=== PATIENT | female | born 1965 | race Caucasian/White ===

== ENCOUNTER → 2019-11-23 09:25 | Outpatient (BNVA) | payer BC, SELFPAY | PROVIDERS: Family Provider Family Medicine; PCP Family Medicine; Visit Provider Family Medicine | DX: E78.5 Hyperlipidemia, unspecified (principal); L20.9 Atopic dermatitis, unspecified; M79.7 Fibromyalgia | CPT/HCPCS: 80053; 80061; 85025 ==

== ENCOUNTER → 2020-06-06 10:52 | Outpatient (BNVA) | payer BC, SELFPAY | PROVIDERS: Family Provider Family Medicine; PCP Family Medicine; Visit Provider Family Medicine | DX: Z79.891 Long term (current) use of opiate analgesic (principal); M79.7 Fibromyalgia; F51.04 Psychophysiologic insomnia; Z68.30 Body mass index [BMI] 30.0-30.9, adult; F17.211 Nicotine dependence, cigarettes, in remission | CPT/HCPCS: 80307; 80373 ==

== ENCOUNTER → 2020-08-22 11:20 | Outpatient (BNVA) | payer BC, SELFPAY | PROVIDERS: Family Provider Family Medicine; PCP Family Medicine; Visit Provider Nurse Practitioner Family | DX: Z20.828 Contact with and (suspected) exposure to other viral communicable diseases (principal); J06.9 Acute upper respiratory infection, unspecified | CPT/HCPCS: 87635 ==

== ENCOUNTER → 2020-08-26 13:09 | Outpatient (BNVA) | payer BC, SELFPAY | PROVIDERS: Family Provider Family Medicine; PCP Family Medicine; Visit Provider Nurse Practitioner Family | DX: Z20.828 Contact with and (suspected) exposure to other viral communicable diseases (principal) | CPT/HCPCS: 87635 ==

== ENCOUNTER → 2020-12-12 09:14 | Outpatient (BNVA) | payer BC, SELFPAY | PROVIDERS: Family Provider Family Medicine; PCP Family Medicine; Visit Provider Family Medicine | DX: E78.5 Hyperlipidemia, unspecified (principal); Z79.891 Long term (current) use of opiate analgesic; M79.7 Fibromyalgia; F51.04 Psychophysiologic insomnia; Z68.29 Body mass index [BMI] 29.0-29.9, adult; F17.211 Nicotine dependence, cigarettes, in remission | CPT/HCPCS: 80053; 80061; 85025 ==

== ENCOUNTER → 2021-06-12 09:58 | Outpatient (BNVA) | payer BC, SELFPAY | PROVIDERS: Family Provider Family Medicine; PCP Family Medicine; Visit Provider Family Medicine | DX: E78.5 Hyperlipidemia, unspecified (principal); M79.7 Fibromyalgia; F51.04 Psychophysiologic insomnia; K21.9 Gastro-esophageal reflux disease without esophagitis | CPT/HCPCS: 80053 ==

== ENCOUNTER 2021-12-11 11:26 | Outpatient (CLI) | payer BC, SELFPAY ==
--- NOTE | 2021-12-11 11:44 | XR_ITS ---
WS: [id number] XR cervical spine 3V* [id number] REASON FOR EXAM: chronic neck pain FINDINGS: Compared to the previous examination of 08/20/2007 there is been progression of the narrowing of the disc space at C4-C5 with moderate anterior osteophyte formation. There is also been progressive narro wing of the disc space at C5-C6 with anterior osteophyte formation. There is 2.7 mm of anterolisthesis of C4 on C5 and 3 mm of anterolisthesis of C5 on C6. No significant vertebral body compression deformity or other focal lesion. Normal facet joint alignment and odontoid. XR/XR cervical spine 3V* [id number] IMPRESSION: Progression of cervical degenerative spondylosis as above.
== END 2021-12-11 11:27 | disposition home or self-care (01) ==
PROVIDERS: PCP Family Medicine; Visit Provider Family Medicine
DX: M47.812 Spondylosis without myelopathy or radiculopathy, cervical region (principal); E78.5 Hyperlipidemia, unspecified
CPT/HCPCS: 72040; 80053; 80061; 85025

== ENCOUNTER 2022-08-08 13:11 | Outpatient (CLI) | payer BC, SELFPAY ==
--- NOTE | 2022-08-08 13:45 | MR_ITS ---
WS: [id number] MRI CERVICAL SPINE NONCONTRAST HISTORY: cervical radicular pain COMPARISON: 06/18/2008 Technique: Multiplanar, multisequence noncontrast imaging of the cervical spine. Slight straightening and reversal of normal cervical lordosis centered at C4-5. No marrow edema or fr acture. C4 and C5 osteophytosis with progression since the prior study. Osteophytes contact the ventr al thecal sac with displacement and stenosis. Signal within the cervical cord is normal. Visualized posterior fossa is unremarkable. Craniocervical junction, C1 and C2 relationship, odontoid process and soft tissues are normal. C2-C3: Normal. C3-C4: Mild disc bulge. No stenosis. C4-C5: Marked osteophytic ridging and annular disc bulging. Disc and osteophyte contact the ventral t hecal sac with displacement. Severe central and bilateral foraminal stenosis. C5-C6: Diffuse osteophytic ridging. Predominantly osteophyte encroaching upon the ventral thecal sac and the foramina. Severe central and bilateral foraminal stenosis. C6-C7: Mild disc bulging and osteophytic ridging. No significant stenosis. C7-T1: No central stenosis. Small nerve root diverticulum LEFT foramen. Paraspinal soft tissue are normal. MR/MR cervical spin wo con* [id number] IMPRESSION: 1. Progression of stenosis and degenerative disc disease and osteophytosis sin ce 2007. 2. Severe central and bilateral foraminal stenosis at C4-5 and C5-6. Disc and osteophyte contact the ventral thecal sac with displacement. Stenosis predomina ntly due to osteophyte disease. 3. No signal abnormality in the cord.
== END 2022-08-08 13:12 | disposition home or self-care (01) ==
PROVIDERS: PCP Family Medicine; Visit Provider Family Medicine
DX: M54.12 Radiculopathy, cervical region (principal); M48.02 Spinal stenosis, cervical region; M25.78 Osteophyte, vertebrae
CPT/HCPCS: 72141

== ENCOUNTER → 2023-02-22 08:31 | Outpatient (BNVA) | payer BC, SELFPAY | PROVIDERS: PCP Family Medicine; Visit Provider Family Medicine | DX: E78.5 Hyperlipidemia, unspecified (principal); L20.9 Atopic dermatitis, unspecified; M79.7 Fibromyalgia; K21.9 Gastro-esophageal reflux disease without esophagitis; M54.12 Radiculopathy, cervical region; F51.04 Psychophysiologic insomnia | CPT/HCPCS: 80053; 80061; 85025 ==

== ENCOUNTER → 2023-08-23 11:21 | Outpatient (BNVA) | payer BC, SELFPAY | PROVIDERS: PCP Family Medicine; Visit Provider Family Medicine | DX: M48.02 Spinal stenosis, cervical region (principal); K21.9 Gastro-esophageal reflux disease without esophagitis; E78.5 Hyperlipidemia, unspecified; F51.04 Psychophysiologic insomnia; M79.7 Fibromyalgia | CPT/HCPCS: 80053 ==

== ENCOUNTER → 2024-02-25 08:22 | Outpatient (BNVA) | payer BC, SELFPAY | PROVIDERS: PCP Family Medicine; Visit Provider Family Medicine | DX: E78.5 Hyperlipidemia, unspecified (principal); Z13.6 Encounter for screening for cardiovascular disorders; R31.9 Hematuria, unspecified; M54.12 Radiculopathy, cervical region; K21.9 Gastro-esophageal reflux disease without esophagitis; M79.7 Fibromyalgia; F51.04 Psychophysiologic insomnia; R31.29 Other microscopic hematuria | CPT/HCPCS: 80053; 80061; 81003; 85025 ==

== ENCOUNTER → 2025-01-13 09:06 | Outpatient (BNVA) | payer BC, SELFPAY | PROVIDERS: PCP Family Medicine; Visit Provider Family Medicine | DX: E78.5 Hyperlipidemia, unspecified (principal); Z79.891 Long term (current) use of opiate analgesic; M54.12 Radiculopathy, cervical region; M79.7 Fibromyalgia; K21.9 Gastro-esophageal reflux disease without esophagitis; F51.04 Psychophysiologic insomnia | CPT/HCPCS: 80053; 80061; 84439; 84443; 85025 ==